=== PATIENT | male | born 1970 | race Two or more races ===

== ENCOUNTER 2025-08-24 16:32 | Emergency (ER) | payer OTHER ==
[~2025-08-24] VITALS: Ht 172.7 cm; Wt 89.8 kg
[2025-08-24 16:36] VITALS: O2SAT 99
[2025-08-24] MEDS: LIDOCAINE 5% PATCH TOP SCH (17:42)
[2025-08-24] MEDS: KETOROLAC 30MG/ML VIAL IM ONE (17:43)
[2025-08-24] MEDS ORDERED: IBUP-2028 MT (17:45)
[2025-08-24] MEDS ORDERED: LIDO-53 TP (17:45)
[2025-08-24 18:02] VITALS: BP 134/73; PULSE 63; RESP 16; TEMP 36.8; O2SAT 100
== END 2025-08-24 18:02 | disposition home or self-care (01) ==
LOC: ER 16:32
DX: R07.89 Other chest pain (principal); I10 Essential (primary) hypertension; E11.9 Type 2 diabetes mellitus without complications
CPT/HCPCS: 71045; 99283; J1885